=== PATIENT | female | born 1945 | race Caucasian/White ===

== ENCOUNTER 2020-03-19 10:10 | Observation (INO) | payer MEDICARE, SELFPAY ==
[2020-03-19] VITALS (14 sets, daily range): BP systolic 123–188; BP diastolic 59–85; PULSE 51–62; RESP 14–27; TEMP 36.6–36.8; O2SAT 96–100; BMI 24.9
--- NOTE | 2020-03-19 10:35 | DI.RAD.S_ITS ---
PROCEDURE: XR CHEST 1V INDICATIONS: chest pain TECHNIQUE: One view of the chest was acquired. COMPARISON: None. FINDINGS: Surgical changes and devices: None. Lungs and pleura: Minimal streaky opacities can be seen involving both lower lungs. Generalized interstitial prominence is seen. On this semiupright portable chest examination, no large pneumothorax or large pleural effusions are seen. Mediastinum: The cardiac contours are within normal limits. The aorta demonstrates calcification and tortuosity. Bones and chest wall: Age-appropriate bony degenerative changes are seen. No suspicious bony lesions. Overlying soft tissues appear unremarkable. IMPRESSION: Interstitial prominence is seen throughout. The interstitial prominence is nonspecific, yet may be related to pulmonary edema. Minimal streaky opacities are seen at the lung bases, which likely relate to atelectasis. Dictated by: Miller Brandon M.D. on 03/19/2020 at 10:13 Approved by: Miller Brandon M.D. on 03/19/2020 at 10:14
[2020-03-19 11:01] LABS: Albumin 4.1 g/dL (3.5-5.0); Estimated Glomerular Filt Rate > 60.0 mL/min (>60); HEMOLYSIS < 15 (0-50)
[2020-03-19 11:13] LABS: Troponin I < 0.012 ng/mL (0.01-0.034)
--- NOTE | 2020-03-19 11:31 | DI.CT.S_ITS ---
PROCEDURE: CT HEAD/BRAIN WO CON INDICATIONS: dizziness, resolved eye droops and slurred speech TECHNIQUE: Noncontrast 4.5 mm thick angled axial sections acquired from the foramen magnum to the vertex, with coronal and sagittal reformats. For radiation dose reduction, the following was used: automated exposure control, adjustment of mA and/or kV according to patient size. COMPARISON: [facility], CR, XR CHEST 1V, 03/19/2020, 10:38. FINDINGS: Image quality: Excellent. CSF spaces: Basal cisterns are patent. There is an arachnoid cyst involving the anterior aspect of the left middle cranial fossa. The ventricles are symmetric in size and shape. Brain: No intracranial bleeds or masses. This focal dense calcification can be seen involving the anterior left temporal lobe, as on series 2, image 8. There is cerebral volume loss for age, with resultant ventricular and sulcal prominence. There are periventricular and deep white matter chronic small vessel ischemic changes. There is intracranial internal carotid artery atherosclerosis. Skull and face: Calvarium and visualized facial bones appear intact, without suspicious lesions. Sinuses: Focal mucosal thickening is seen involving the right psis maxillary sinus. The paranasal sinuses are otherwise unremarkable. No abnormal fluid is seen within the mastoid air cells. There is a left indra bullosa seen. Moderate rightward nasal septal deviation can be seen. IMPRESSION: No acute intracranial process is seen by noncontrast CT. No acute intracranial hemorrhage is seen. If there is strong clinical suspicion for an acute stroke, please consider an MRI for further evaluation, as it is more sensitive (assuming that there is no contraindication to MRI). There is focal mucosal thickening involving the right maxillary sinus. Focal calcification can be seen involving the left anterior temporal lobe, which is nonspecific, yet may be related to a remote infarct or potentially a remote infection. Incidental note is made of an arachnoid cyst involving the anterior aspect of the left middle cranial fossa. Dictated by: Miller Brandon M.D. on 03/19/2020 at 11:06 Approved by: Miller Brandon M.D. on 03/19/2020 at 11:09
--- NOTE | 2020-03-19 11:42 | ED_ITS ---
HPI - Dizziness <WALT Pagan - Last Filed: 03/19/20 16:09> General Chief Complaint: Dizziness Stated Complaint: Dizziness and headache on and off 2 weeks Time Seen by Provider: 03/19/20 10:43 Source: patient Mode of arrival: Ambulatory Limitations: no limitations History of Present Illness HPI Narrative: This is a 74-year-old female, former smoker who quit smoking 3 weeks ago, who has known contributing medical history presents to ED with her daughter with chief complain of dizziness with spinning sensation which becomes worse when she keeps her eyes closed without any nausea or vomiting started 10:00 a.m. yesterday when she turned her head slightly look over. Daughter st ates she had right side eye droops for several minutes with nystagmus and loss of vision for a few seconds and described as eyes were jumping out. Daughter also noticed mother's speech was not clear but with appropriate content. With this dizziness, she had brief dyspnea and intermittent mild frontal headache. Patient denies weakness to extremities. Patient denies chest pain or vomiting. Patient reports she has been having light dizziness for last 2-3 weeks but became worse yesterday. She reports her symptoms have improved at this time but still feels slightly dizzy. Patient reports she always has trouble with balance. She used to have migraine headache in the past before the hyste rectomy. Patient is visiting her daughter from [place] since March 05. Patient was in contact with family members who has Covid back in November but she had not developed any Covid symptoms at that time. Related Data Home Medications Medication Instructions Recorded Confirmed No Known Home Medications 03/19/20 03/19/20 Allergies Allergy/AdvReac Type Severity Reaction Status Date / Time No Known Drug Allergies Allergy Verified 03/19/20 11:43 Review of Systems <WALT Pagan - Last Filed: 03/19/20 16:09> Review of Systems Narrative: General: Denies fever, chills, fatigue, malaise, sweats. HEENT: See HPI Respiratory: Denies (+) dyspnea with dizziness which resolved, cough, wheezing, hemoptysis, sputum. Cardiovascular: Denies chest pain, palpitations, orthopnea, edema. Gastrointestinal: Denies nausea, vomiting, abdominal pain, diarrhea, constipation, melena. : Denies dysuria, frequency, incontinence, hematuria, urinary retention. Musculoskeletal: Denies weakness, joint pain or bony pain. Skin: Denies rash, skin lesions, or other. Neurologic: HPI Psychiatric: No concerning psychosocial issues. 12-point review of systems is negative except for those stated above. Patient History <WALT Pagan - Last Filed: 03/19/20 16:09> Medical History Cigarette nicotine dependence (Acute) Surgical History (Updated 03/19/20 @ 11:50 by WALT Pagan) History of hysterectomy (Acute) Social History household members: family Smoking Status: Former smoker alcohol intake: current Smoking Status: Former smoker (Quit 02/2020 smoked for 56 yr) alcohol intake frequency: other (Does not use) Substance Use Type: does not use Exam <WALT Pagan - Last Filed: 03/19/20 16:09> Narrative Exam Narrative: GEN: Alert, oriented x 3, well appearing and nourished, and in no acute distress. Head: Normal cephalic, atraumatic. No scalp or temporal tenderness, palpable mass or rash. EYES: Pupils are equal, round, and reactive to light and accommodation. Extraocular muscles are intact bilaterally. There is no subconjunctival hemorrhage, exudate and sclera non-icteric. No nystagmus. ENT: Bilateral auditory canals and tympanic membranes clear. Hearing grossly intact. Nose without bleeding, purulent discharge, septal hematoma or deviation. Turbinate without erythema or swelling. Facial sinuses nontender to palpate. Mucous membrane moist, no mucosal lesion. Throat without erythema, tonsillar hypertrophy or exudate. Uvula in midline, airway patent. Neck: Trachea in midline. No JVD, non-tender without lymphadenopathy. No masses or thyroid megaly. Supple, non-tender and no meningeal signs. CARDIAC: Normal regular rate and rhythm without murmurs, gallops, or rubs. No chest wall tenderness. No peripheral edema, cyanosis or pallor. Capillary refill is less than 2 seconds. No carotid bruits. RESPIRATORY: Lungs are cleat to auscultate bilaterally. No cough, wheezes, rales, or rhonchi. No stridor, respiratory distress, increase work of breathing, or accessary muscle used. ABD: Abdomen soft, nontender and non-distended. No guarding or rebound tend erness to palpate. Bowel sounds are normal in all 4 quadrants. There is no palpable masses or organomegaly. EXT: Full painless ROM of all extremities with no loss of sensation, strength, effusion or edema. SKIN: Warm, dry, normal color for patient. No erythema, lesions or rash. BACK: Nontender without deformity or crepitance. No flank tenderness. NEUROLOGICAL: Alert and oriented to place, time and person. No facial droops, dysphasia. CN II-XII intact. Strength and sensation symmetric and intact throughout. Cerebellar testing normal. PSYCHIATRIC: Good judgement and reason, without hallucinations, abnormal affect or abnormal behaviors during the examination. Patient is not suicidal. Initial Vital Signs Initial Vital Signs: Vital Signs Temperature 98.2 F 03/19/20 10:28 Pulse Rate 59 L 03/19/20 10:28 Respiratory Rate 18 03/19/20 10:28 Blood Pressure 188/84 H 03/19/20 10:28 <Lani Evangelista DO - Last Filed: 03/20/20 07:36> Initial Vital Signs Initial Vital Signs: Vital Signs Temperature 98.2 F 03/19/20 10:28 Pulse Rate 59 L 03/19/20 10:28 Respiratory Rate 18 03/19/20 10:28 Blood Pressure 188/84 H 03/19/20 10:28 Scores <WALT Pagan - Last Filed: 03/19/20 16:09> GCS Sprague coma scale eye opening: Spontaneous Shauna coma scale verbal response: Orientated Shauna coma scale motor response: Obey commands Sprague coma scale total score: 15 NIH Stroke Scale Level of Conciousness: Alert, keenly responsive Ask month/age: Answers both questions correctly. Open/close eyes, close hand: Performs both tasks correctly Best gaze horizontal: Normal Visual leon: No visual loss Facial palsy: Normal symetrical movement Left arm drift: No drift for full 10 sec Right arm drift: No drift for full 10 sec Left leg drift: No drift for full 5 sec Right leg drift: No drift for full 5 sec Limb ataxia: Absent Sensory on face/arms/legs: Normal, no sensory loss Best language: No aphasia, normal Dysarthria: Normal Extinction or inattention: No abnormality Total NIH Stroke scale score: 0 Course <WALT Pagan - Last Filed: 03/19/20 16:09> Orders Ordered: Acetaminophen (Tylenol) 650 mg PO Q6HR PRN PRN Reason: Fever/Mild Pain (1-3) Aspirin (Aspirin Ec) 81 mg PO DAILY [facility] Enoxaparin Sodium (Lovenox) 40 mg SUBCUT DAILY [facility] Magnesium Hydroxide (Milk Of Magnesia) 30 ml PO DAILY PRN PRN Reason: Constipation Sodium Chloride (Normal Saline 0.9% Flush) 10 ml IV PRN PRN PRN Reason: Flush Sodium Chloride (Normal Saline 0.9% Flush) 10 ml IV BID MARLA Discontinued Medications Aspirin (Aspirin) 325 mg PO NOW ONE Stop: 03/19/20 13:21 Last Admin: 03/19/20 13:39 Dose: 325 mg Documented by: RAMON Meclizine HCl (Antivert) 25 mg PO NOW ONE Stop: 03/19/20 11:42 Last Admin: 03/19/20 11:57 Dose: 25 mg Documented by: JOHNY Reevaluation(s) Reevaluation #1: Patient reports dizziness has improved and mostly gone after the meclizine. Time: 13:20 Consultations Consultation #1: Dr. Marshall consulted with the physical findings, HPI and CT result. He recommended CTA of brain and neck and if this comes back unremarka ble then will admit patient for stroke workup with MRI tomorrow under observation. Time: 12:40 Vital Signs Vital signs: Vital Signs - 8 hr 03/19/20 10:28 03/19/20 11:14 03/19/20 11:30 Temperature 98.2 F Pulse Rate 59 L 62 54 L Respiratory Rate 18 14 27 H Blood Pressure 188/84 H 155/66 H 126/85 Pulse Oximetry 98 97 03/19/20 12:00 03/19/20 12:30 03/19/20 13:00 Temperature Pulse Rate 52 L 54 L 51 L Respiratory Rate 18 21 19 Blood Pressure 136/75 131/61 126/59 L Pulse Oximetry 99 97 100 03/19/20 13:30 03/19/20 14:00 03/19/20 14:01 Temperature Pulse Rate 53 L 51 L 52 L Respiratory Rate 21 21 20 Blood Pressure 152/65 H Pulse Oximetry 99 97 97 <Lani Evangelista, - Last Filed: 03/20/20 07:36> Orders Ordered: Acetaminophen (Tylenol) 650 mg PO Q6HR PRN PRN Reason: Fever/Mild Pain (1-3) Aspirin (Aspirin Ec) 81 mg PO DAILY [facility] Enoxaparin Sodium (Lovenox) 40 mg SUBCUT DAILY [facility] Magnesium Hydroxide (Milk Of Magnesia) 30 ml PO DAILY PRN PRN Reason: Constipation Sodium Chloride (Normal Saline 0.9% Flush) 10 ml IV PRN PRN PRN Reason: Flush Sodium Chloride (Normal Saline 0.9% Flush) 10 ml IV BID [facility]LA Discontinued Medications Aspirin (Aspirin) 325 mg PO NOW ONE Stop: 03/19/20 13:21 Last Admin: 03/19/20 13:39 Dose: 325 mg Documented by: RAMON Meclizine HCl (Antivert) 25 mg PO NOW ONE Stop: 03/19/20 11:42 Last Admin: 03/19/20 11:57 Dose: 25 mg Documented by: JOHNY Vital Signs Vital signs: Vital Signs - 8 hr 03/19/20 10:28 03/19/20 11:14 03/19/20 11:30 Temperature 98.2 F Pulse Rate 59 L 62 54 L Respiratory Rate 18 14 27 H Blood Pressure 188/84 H 155/66 H 126/85 Pulse Oximetry 98 97 03/19/20 12:00 03/19/20 12:30 03/19/20 13:00 Temperature Pulse Rate 52 L 54 L 51 L Respiratory Rate 18 21 19 Blood Pressure 136/75 131/61 126/59 L Pulse Oximetry 99 97 100 03/19/20 13:30 03/19/20 14:00 03/19/20 14:01 Temperature Pulse Rate 53 L 51 L 52 L Respiratory Rate 21 21 20 Blood Pressure 152/65 H Pulse Oximetry 99 97 97 MDM - Dizziness <Colten WALT Hager - Last Filed: 03/19/20 16:09> Differential Diagnosis Differential diagnosis: Likely benign paroxysmal positional vertigo, orthostatic hypotension, vertebral basilar insufficiency, cerebrovascular accident and transient cerebral ischemia Medical Records Attestation: I reviewed the patient's medical records. Lab Data Attestation: I reviewed the patient's lab results. Result diagrams: 03/19/20 10:39 03/19/20 10:39 Labs: Lab Results 03/19/20 03/19/20 03/19/20 Range/Units 10:39 10:39 10:39 WBC 5.8 (4.5-11.0) X10^3/uL RBC 4.70 (4.0-5.2) X10^6/uL Hgb 14.0 (12.0-16.0) g/dL Hct 41.7 (36-46) % MCV 88.8 (80-100) fL MCH 29.8 (26-34) PG MCHC 33.5 (30-36) % RDW 13.6 (11.6-14.8) % Plt Count 188 (150-400) X10^3/uL Neut % (Auto) 47.2 L (50-75) % Lymph % (Auto) 40.3 H (25-40) % [place] % (Auto) 7.4 (3-14) % Eos % (Auto) 4.1 H (2-4) % Baso % (Auto) 1.0 (0-2) % Neut # (Auto) 3 L (6432-7865) /uL Lymph # (Auto) 2 L (2580-0671) /uL [place] # (Auto) 0 (0-900) /uL Eos # (Auto) 0 (0-450) /uL Baso # (Auto) 0 (0-100) /uL PT 11.4 (10.1-12.7) SECONDS INR 1.0 (0.9-1.3) APTT 29 (26.4-36.2) SECONDS Sodium 139 (137-145) mmol/L Potassium 4.4 (3.4-5.1) mmol/L Chloride 108 H (98-107) mmol/L Carbon Dioxide 24 (22-32) mmol/L BUN 15 (7-17) mg/dL Creatinine 0.64 (0.52-1.04) mg/dL Estimated GFR > 60.0 (>60) mL/min BUN/Creatinine Ratio 23.4 H (6-22) Glucose 102 (80-110) mg/dL Hemoglobin A1c (4.0-6.0) % Calcium 8.8 (8.4-10.2) mg/dL Total Bilirubin 0.5 (0.2-1.3) mg/dL AST 25 (14-36) IU/L ALT 22 (<35) IU/L Alkaline Phosphatase 68 (38-126) U/L Total Creatine Kinase 116 (30-135) U/L CK-MB (CK-2) (<2.37) ng/mL CK-MB (CK-2) Rel Index (1.5-5.0) % Troponin I < 0.012 (0.01-0.034) ng/mL Total Protein 6.9 (6.3-8.2) g/dL Albumin 4.1 (3.5-5.0) g/dL Globulin 2.8 (1.7-4.1) g/dL Albumin/Globulin Ratio 1.5 (1.0-2.8) Triglycerides (35-150) mg/dL Cholesterol (140-199) mg/dL LDL Cholesterol, Calc (<100) mg/dL HDL Cholesterol (40-60) mg/dL Lipase 308 H (23-300) U/L COVID-19 PCR (Negative) 03/19/20 03/19/20 03/19/20 Range/Units 10:39 10:39 13:10 WBC (4.5-11.0) X10^3/uL RBC (4.0-5.2) X10^6/uL Hgb (12.0-16.0) g/dL Hct (36-46) % MCV (80-100) fL MCH (26-34) PG MCHC (30-36) % RDW (11.6-14.8) % Plt Count (150-400) X10^3/uL Neut % (Auto) (50-75) % Lymph % (Auto) (25-40) % [place] % (Auto) (3-14) % Eos % (Auto) (2-4) % Baso % (Auto) (0-2) % Neut # (Auto) (4396-5916) /uL Lymph # (Auto) (3993-9696) /uL [place] # (Auto) (0-900) /uL Eos # (Auto) (0-450) /uL Baso # (Auto) (0-100) /uL PT (10.1-12.7) SECONDS INR (0.9-1.3) APTT (26.4-36.2) SECONDS Sodium (137-145) mmol/L Potassium (3.4-5.1) mmol/L Chloride (98-107) mmol/L Carbon Dioxide (22-32) mmol/L BUN (7-17) mg/dL Creatinine (0.52-1.04) mg/dL Estimated GFR (>60) mL/min BUN/Creatinine Ratio (6-22) Glucose (80-110) mg/dL Hemoglobin A1c 6.0 (4.0-6.0) % Calcium (8.4-10.2) mg/dL Total Bilirubin (0.2-1.3) mg/dL AST (14-36) IU/L ALT (<35) IU/L Alkaline Phosphatase (38-126) U/L Total Creatine Kinase (30-135) U/L CK-MB (CK-2) (<2.37) ng/mL CK-MB (CK-2) Rel Index (1.5-5.0) % Troponin I (0.01-0.034) ng/mL Total Protein (6.3-8.2) g/dL Albumin (3.5-5.0) g/dL Globulin (1.7-4.1) g/dL Albumin/Globulin Ratio (1.0-2.8) Triglycerides 351 H (35-150) mg/dL Cholesterol 204 H (140-199) mg/dL LDL Cholesterol, Calc 89 (<100) mg/dL HDL Cholesterol 45 (40-60) mg/dL Lipase (23-300) U/L COVID-19 PCR Negative (Negative) Imaging Data Chest x-ray: Radiologist's Impression: [address] [id number] XRay Report Signed Patient: Janell Oconnor LMR#: [id number] : 7Acct:[id number] Age/Sex: 74 / FDate of Service: 03/19/20 Loc: ED Accession Number: [id number] Procedure: XR chest 1V Ordering Provider: Lani Evangelista D.O. PROCEDURE: XR CHEST 1V INDICATIONS: chest pain TECHNIQUE: One view of the chest was acquired. COMPARISON: None. FINDINGS: Surgical changes and devices: None. Lungs and pleura: Minimal streaky opacities can be seen involving both lower l ungs. Generalized interstitial prominence is seen. On this semiupright portable chest examination, no large pneumothorax or large pleural effusions are seen. Mediastinum: The cardiac contours are within normal limits. The aorta demonstrates calcification and tortuosity. Bones and chest wall: Age-appropriate bony degenerative changes are seen. No suspicious bony lesions. Overlying soft tissues appear unremarkable. IMPRESSION: Interstitial prominence is seen throughout. The interstitial prominence is nonspecific, yet may be related to pulmonary edema. Minimal streaky opacities are seen at the lung bases, which likely relate to atelectasis. Dictated by: Miller Brandon M.D. on 03/19/2020 at 10:13 Approved by: Miller Brandon M.D. on 03/19/2020 at 10:14 CT scan - head: Radiologist's Impression: [address] [address] [address] Scan Report Signed Patient: Janell Oconnor LMR#: [id number] : 7Acct:[id number] Age/Sex: 74 / FDate of Service: 03/19/20 Loc: ED Accession Number: [id number] Procedure: CT head/brain wo con Ordering Provider: Colten Hager PROCEDURE: CT HEAD/BRAIN WO CON INDICATIONS: dizziness, resolved eye droops and slurred speech TECHNIQUE: Noncontrast 4.5 mm thick angled axial sections acquired from the foramen magnum to the vertex, with coronal and sagittal reformats. For radiation dose reduction, the following was used: automated exposure control, adjustment of mA and/or kV according to patient size. COMPARISON: [facility], CR, XR CHEST 1V, 03/19/2020, 10:38. FINDINGS: Image quality: Excellent. CSF spaces: Basal cisterns are patent. There is an arachnoid cyst involving the anterior aspect of the left middle cranial fossa. The ventricles are symmetric in size and shape. Brain: No intracranial bleeds or masses. This focal dense calcification can be seen involving the anterior left temporal lobe, as on series 2, image 8. There is cerebral volume loss for age, with resultant ventricular and sulcal prominence. There are periventricular and deep white matter chronic small vessel ischemic changes. There is intracranial internal carotid artery atherosclerosis. Skull and face: Calvarium and visualized facial bones appear intact, without suspicious lesions. Sinuses: Focal mucosal thickening is seen involving the right psis maxillary sinus. The paranasal sinuses are otherwise unremarkable. No abnormal fluid is seen within the mastoid air cells. There is a left indra bullosa seen. Moderate rightward nasal septal deviation can be seen. IMPRESSION: No acute intracranial process is seen by noncontrast CT. No acute intracranial hemorrhage is seen. If there is strong clinical suspicion for an acute stroke, please consider an MRI for further evaluation, as it is more sensitive (assuming that there is no contraindication to MRI). There is focal mucosal thickening involving the right maxillary sinus. Focal calcification can be seen involving the left anterior temporal lobe, which is nonspecific, yet may be related to a remote infarct or potentially a remote infection. Incidental note is made of an arachnoid cyst involving the anterior aspect of the left middle cranial fossa. Dictated by: Miller Brandon M.D. on 03/19/2020 at 11:06 Approved by: Miller Brandon M.D. on 03/19/2020 at 11:09 CTA-Brain and neck: Radiologist's Impression: [place] [address] CT Scan Report Signed Patient: Janell Oconnor LMR#: [id number] : 1945cct:[id number] Age/Sex: 74 / FDate of Service: 03/19/20 Loc: ED Accession Number: [id number] Procedure: CT head/brain wo con Ordering Provider: Colten Hager PROCEDURE: CT HEAD/BRAIN WO CON INDICATIONS: dizziness, resolved eye droops and slurred speech TECHNIQUE: Noncontrast 4.5 mm thick angled axial sections acquired from the foramen magnum to the vertex, with coronal and sagittal reformats. For radiation dose reduction, the following was used: automated exposure control, adjustment of mA and/or kV according to patient size. COMPARISON: [facility], CR, XR CHEST 1V, 03/19/2020, 10:38. FINDINGS: Image quality: Excellent. CSF spaces: Basal cisterns are patent. There is an arachnoid cyst involving the anterior aspect of the left middle cranial fossa. The ventricles are symmetric in size and shape. Brain: No intracranial bleeds or masses. This focal dense calcification can be seen involving the anterior left temporal lobe, as on series 2, image 8. There is cerebral volume loss for age, with resultant ventricular and sulcal prominence. There are periventricular and deep white matter chronic small vessel ischemic changes. There is intracranial internal carotid artery atherosclerosis. Skull and face: Calvarium and visualized facial bones appear intact, without suspicious lesions. Sinuses: Focal mucosal thickening is seen involving the right psis maxillary sinus. The paranasal sinuses are otherwise unremarkable. No abnormal fluid is seen within the mastoid air cells. There is a left indra bullosa seen. Moderate rightward nasal septal deviation can be seen. IMPRESSION: No acute intracranial process is seen by noncontrast CT. No acute intracranial hemorrhage is seen. If there is strong clinical suspicion for an acute stroke, please consider an MRI for further evaluation, as it is more sensitive (assuming that there is no contraindication to MRI). There is focal mucosal thickening involving the right maxillary sinus. Focal calcification can be seen involving the left anterior temporal lobe, which is nonspecific, yet may be related to a remote infarct or potentially a remote infection. Incidental note is made of an arachnoid cyst involving the anterior aspect of the left middle cranial fossa. Dictated by: Miller Brandon M.D. on 03/19/2020 at 11:06 Approved by: Miller Brandon M.D. on 03/19/2020 at 11:09 ECG Data Attestation: I personally reviewed and interpreted this ECG as follows: Prior ECG tracings: not available for review Interpretation: Sinus bradycardia rate at 59. Left dominant axis. MN interval 156, QRS duration 68, QT/QTC 406/[address] changes MDM Narrative Medical decision making narrative: This is a 74 year female who appears to be younger than her stated age presents to ED with slight dizziness for last 2-3 weeks which became worse yesterday at 10:00 a.m. with vision loss for a few seconds, right upper eyelid drooping with slurred speech than noticed by daughter. Patient flew to [place] from [place] on March 05 to visit her daughter. Patient denies history of cardiac, diabetes, or pulmonary history. No history of strokes or TIAs in the past. She is not taking any anticoagulants or platelets. Patient reports mild frontal headache. Patient denies weakness to extremities, dysphagia. Patient reports she always has balance difficulty. NIH score 0. Concerned for TIA or posterior stroke. EkG shows sinus bradycardia rate at [address] test of head without contrast without acute intracranial process. There is a focal mucosal thickening involving in the right maxillary sinus. Also focal calcification involving left anterior temporal lobe may be related to a remote infarct. Incidental note is made of on paranoid cyst involving the anterior aspect of left middle cranial fossa. CBC, CMP, PT/PTT, Cardiac enzyme are unremarkable. Head and neck without significant intracranial artery abnormality is seen. Chest x-ray shows interstitial prominence is seen throughout which is nonspecific with minimal streaky opacity at the lung bases likely due to atelectasis. Dr. Marshall kindly accepted patient's care under observation for further stroke workup. Patient is given 1 full dose of aspirin in ED. improved dizziness after the meclizine. <Lani Evangelista, DO - Last Filed: 03/20/20 07:36> Lab Data Labs: Lab Results 03/19/20 03/19/20 03/19/20 Range/Units 10:39 10:39 10:39 WBC 5.8 (4.5-11.0) X10^3/uL RBC 4.70 (4.0-5.2) X10^6/uL Hgb 14.0 (12.0-16.0) g/dL Hct 41.7 (36-46) % MCV 88.8 (80-100) fL MCH 29.8 (26-34) PG MCHC 33.5 (30-36) % RDW 13.6 (11.6-14.8) % Plt Count 188 (150-400) X10^3/uL Neut % (Auto) 47.2 L (50-75) % Lymph % (Auto) 40.3 H (25-40) % [place] % (Auto) 7.4 (3-14) % Eos % (Auto) 4.1 H (2-4) % Baso % (Auto) 1.0 (0-2) % Neut # (Auto) 3 L (0771-8380) /uL Lymph # (Auto) 2 L (2359-3553) /uL [place] # (Auto) 0 (0-900) /uL Eos # (Auto) 0 (0-450) /uL Baso # (Auto) 0 (0-100) /uL PT 11.4 (10.1-12.7) SECONDS INR 1.0 (0.9-1.3) APTT 29 (26.4-36.2) SECONDS Sodium 139 (137-145) mmol/L Potassium 4.4 (3.4-5.1) mmol/L Chloride 108 H (98-107) mmol/L Carbon Dioxide 24 (22-32) mmol/L BUN 15 (7-17) mg/dL Creatinine 0.64 (0.52-1.04) mg/dL Estimated GFR > 60.0 (>60) mL/min BUN/Creatinine Ratio 23.4 H (6-22) Glucose 102 (80-110) mg/dL Hemoglobin A1c (4.0-6.0) % Calcium 8.8 (8.4-10.2) mg/dL Total Bilirubin 0.5 (0.2-1.3) mg/dL AST 25 (14-36) IU/L ALT 22 (<35) IU/L Alkaline Phosphatase 68 (38-126) U/L Total Creatine Kinase 116 (30-135) U/L CK-MB (CK-2) (<2.37) ng/mL CK-MB (CK-2) Rel Index (1.5-5.0) % Troponin I < 0.012 (0.01-0.034) ng/mL Total Protein 6.9 (6.3-8.2) g/dL Albumin 4.1 (3.5-5.0) g/dL Globulin 2.8 (1.7-4.1) g/dL Albumin/Globulin Ratio 1.5 (1.0-2.8) Triglycerides (35-150) mg/dL Cholesterol (140-199) mg/dL LDL Cholesterol, Calc (<100) mg/dL HDL Cholesterol (40-60) mg/dL Lipase 308 H (23-300) U/L COVID-19 PCR (Negative) 03/19/20 03/19/20 03/19/20 Range/Units 10:39 10:39 13:10 WBC (4.5-11.0) X10^3/uL RBC (4.0-5.2) X10^6/uL Hgb (12.0-16.0) g/dL Hct (36-46) % MCV (80-100) fL MCH (26-34) PG MCHC (30-36) % RDW (11.6-14.8) % Plt Count (150-400) X10^3/uL Neut % (Auto) (50-75) % Lymph % (Auto) (25-40) % [place] % (Auto) (3-14) % Eos % (Auto) (2-4) % Baso % (Auto) (0-2) % Neut # (Auto) (2626-2212) /uL Lymph # (Auto) (6259-2412) /uL [place] # (Auto) (0-900) /uL Eos # (Auto) (0-450) /uL Baso # (Auto) (0-100) /uL PT (10.1-12.7) SECONDS INR (0.9-1.3) APTT (26.4-36.2) SECONDS Sodium (137-145) mmol/L Potassium (3.4-5.1) mmol/L Chloride (98-107) mmol/L Carbon Dioxide (22-32) mmol/L BUN (7-17) mg/dL Creatinine (0.52-1.04) mg/dL Estimated GFR (>60) mL/min BUN/Creatinine Ratio (6-22) Glucose (80-110) mg/dL Hemoglobin A1c 6.0 (4.0-6.0) % Calcium (8.4-10.2) mg/dL Total Bilirubin (0.2-1.3) mg/dL AST (14-36) IU/L ALT (<35) IU/L Alkaline Phosphatase (38-126) U/L Total Creatine Kinase (30-135) U/L CK-MB (CK-2) (<2.37) ng/mL CK-MB (CK-2) Rel Index (1.5-5.0) % Troponin I (0.01-0.034) ng/mL Total Protein (6.3-8.2) g/dL Albumin (3.5-5.0) g/dL Globulin (1.7-4.1) g/dL Albumin/Globulin Ratio (1.0-2.8) Triglycerides 351 H (35-150) mg/dL Cholesterol 204 H (140-199) mg/dL LDL Cholesterol, Calc 89 (<100) mg/dL HDL Cholesterol 45 (40-60) mg/dL Lipase (23-300) U/L COVID-19 PCR Negative (Negative) Discharge Plan Departure Patient Disposition: Admitted as Observation Clinical Impression: Dizziness, TIA (transient ischemic attack) Discharge Date/Time: 03/19/20 16:31 Admit Date/Time: 03/19/20 14:08 Admit Provider: Gio Marshall <Lani Evangelista DO - Last Filed: 03/20/20 07:36> Cosign ED Attending Yanniature Attestation: I was immediately available in the department for consultation. Documentation has been reviewed. I agree with assessment and plan.
[2020-03-19] MEDS: MECLIZINE HCL 12.5 MG TABLET 25 MG PO (11:57)
--- NOTE | 2020-03-19 12:09 | PC.NURSE ---
Pt states dizziness is improved after meclizine.
--- NOTE | 2020-03-19 12:33 | DI.CT.S_ITS ---
PROCEDURE: CT ANGIO HEAD AND NECK INDICATIONS: stroke symptoms TECHNIQUE: Noncontrast images were performed earlier in the day and not repeated. After the administration of intravenous contrast, 1 mm thick sections acquired from the aortic arch through the Nikolai of Mike. Post-contrast 4.5 mm thick sections then re-acquired from the foramen magnum to the vertex. 3-dimensional sheiaxp-xivnqsild-izovsjqtdz (MIP) and/or volume rendering reformats were acquired of the central intracranial vasculature and neck separately. COMPARISON: [facility], CR, XR CHEST 1V, 03/19/2020, 10:38. [facility], CT, CT HEAD/BRAIN WO CON, 03/19/2020, 11:50. FINDINGS: Image quality: Excellent. BRAIN: CSF spaces: Ventricles are normal in size and shape. Basal cisterns are patent. No extra-axial fluid collections. Brain: No midline shift. No intracranial bleeds or masses. No-white matter interface appears intact. Skull and face: Calvarium and facial bones appear intact, without suspicious lesions. Orbits appear normal. Sinuses: Focal mucosal thickening is seen involving the right maxillary sinus. Sinuses and mastoids are otherwise clear. HEAD CT ANGIOGRAPHY: Anterior circulation: Intracranial internal carotid arteries are normal in size and flow. The flow within the paired anterior cerebral arteries is normal and symmetric. The flow within the middle cerebral arteries is normal and symmetric. The anterior communicating artery is seen. No aneurysms are seen. Posterior circulation: Visualized portions of the vertebral arteries demonstrate normal caliber, and join to form a normal appearing basilar artery. Bilateral type origins of the posterior cerebral arteries are seen. Flow within the posterior cerebral arteries is normal and symmetric. No aneurysms are seen. NECK CT ANGIOGRAPHY: Carotid system: The great vessels demonstrate a conventional anatomy as they arise from the aortic arch. The origins of the common carotid arteries appear patent. The common carotid arteries demonstrate normal caliber and courses. The bifurcation regions are both widely patent. The internal carotid arteries demonstrate normal calibers and courses. Posterior circulation: The origins of the vertebral arteries both appear widely patent. The left vertebral artery is dominant to the right. The more superior extracranial portions of both vertebral arteries also demonstrate normal courses and calibers. They join to form a normal appearing basilar artery. Soft tissues: Visualized neck soft tissues demonstrate no suspicious abnormalities. Bones: No suspicious bony lesions. Visualized cervical spine appears normally aligned. There is moderate disc space narrowing seen involving the C5-C6 and C6-C7 levels. IMPRESSION: No significant intracranial arterial abnormality is seen. Within the arteries of the neck, no hemodynamically significant stenosis can be seen. If there is strong clinical suspicion for an acute stroke, please consider an MRI for further evaluation, as it is more sensitive (assuming that there is no contraindication to MRI). Lower cervical spine degenerative changes are seen. Any quantitative measurements of stenosis were performed using NASCET criteria. Dictated by: Miller Brandon M.D. on 03/19/2020 at 12:07 Approved by: Miller Brandon M.D. on 03/19/2020 at 12:11
[2020-03-19 13:20] LABS: Mean Corpuscular Hemoglobin 29.8 PG (26-34); Mean Corpuscular Volume 88.8 fL (80-100)
[2020-03-19 13:21] LABS: Platelet Count 188 X10^3/uL (150-400); Red Cell Distribution Width 13.6 % (11.6-14.8)
[2020-03-19 13:22] LABS: Neutrophils Percent Auto 47.2 % (50-75)
[2020-03-19 13:23] LABS: Add Manual Diff / Slide Review NO; Basophils Absolute Auto 0 /uL (0-100); Eosinophils Absolute Auto 0 /uL (0-450); Eosinophils Percent Auto 4.1 % (2-4); Lymphocytes Absolute Auto 2 /uL (1100-4500); Lymphocytes Percent Auto 40.3 % (25-40); Monocytes Absolute Auto 0 /uL (0-900); Monocytes Percent Auto 7.4 % (3-14); Neutrophils Absolute Auto 3 /uL (1500-7000)
[2020-03-19 13:28] LABS: White Blood Cell Count 5.8 X10^3/uL (4.5-11.0)
[2020-03-19 13:29] LABS: Mean Corpuscular HGB Conc 33.5 % (30-36)
[2020-03-19 13:35] LABS: Hematocrit 41.7 % (36-46)
[2020-03-19 13:37] LABS: Blood Urea Nitrogen 15 mg/dL (7-17); Carbon Dioxide 24 mmol/L (22-32); Chloride 108 mmol/L (98-107); Potassium 4.4 mmol/L (3.4-5.1); Sodium 139 mmol/L (137-145)
[2020-03-19 13:38] LABS: Bilirubin Total 0.5 mg/dL (0.2-1.3); Calcium 8.8 mg/dL (8.4-10.2); Glucose 102 mg/dL (80-110)
[2020-03-19 13:39] LABS: Alanine Aminotransferase 22 IU/L (<35); Albumin Globulin Ratio 1.5 (1.0-2.8); Alkaline Phosphatase 68 U/L (38-126); Aspartate Aminotransferase 25 IU/L (14-36); Globulin 2.8 g/dL (1.7-4.1); Total Protein 6.9 g/dL (6.3-8.2)
[2020-03-19] MEDS: ASPIRIN 325 MG TABLET PO (13:39)
[2020-03-19 13:40] LABS: Lipase 308 U/L (23-300)
[2020-03-19 13:41] LABS: BUN Creatinine Ratio 23.4 (6-22)
[2020-03-19 13:44] LABS: Creatine Kinase 116 U/L (30-135)
[2020-03-19 13:45] LABS: COVID19 -Nasal RAPID Negative (Negative)
[2020-03-19 13:45] LABS: PTT Partial Thromboplastin Tim 29 SECONDS (26.4-36.2); Prothrombin Time 11.4 SECONDS (10.1-12.7)
--- NOTE | 2020-03-19 13:49 | PC.NURSE ---
Lab called; updated labs verified.
--- NOTE | 2020-03-19 14:59 | DI.ECHO.S_ITS ---
[facility]---------+ [facility] +---------+ : : [address] : : : : [id number] : : : : Phone: [phone]+ Echocardiogram Report + + :Name: HOLLAND CISNEROS Study Date: 03/20/2020 Height: 63 in : :[facility] Weight: 142 lb : : Gender: Female BSA: 1.7 m2 : :: 1945 Age: 74 yrs BP: 145/66 mmHg: :Reason For Study: TIA/CVA : :Ordering Physician: AN, : :ALON Performed By: Amelia Meaz : :Referring: ALON NOLAN : + + Interpretation Summary Normal left ventricle size with ejection fraction 60-65%. Mild aortic regurgitation. Procedure: A two-dimensional transthoracic echocardiogram with color flow and Doppler was performed. The study quality was technically adequate. There is no prior echocardiogram noted for this patient. Left Ventricle: The left ventricle is normal in size and wall thickness. The ejection fraction is estimated to be 60-65%. There are no focal wall motion abnormalities. Diastolic parameters suggest probable normal left ventricular diastolic function and normal filling pressures. Right Ventricle: The right ventricle is normal in size and function. Atria: The left atrial size is normal. Right atrial size is normal. There is no Doppler evidence for an interatrial shunt. Mitral Valve: The mitral valve is normal in structure and function. There is no mitral regurgitation noted. Aortic Valve: The aortic valve is trileaflet. The aortic valve opens well. The aortic valve is grossly normal. There is no aortic valve stenosis. There is mild aortic regurgitation. Tricuspid Valve: The tricuspid valve is normal in structure and function. There is trace tricuspid regurgitation. Pulmonary artery pressures cannot be estimated because of the lack of a measurable TR jet velocity but the IVC suggests a CVP of around 3 mmHg. Pulmonic Valve: The pulmonic valve is not well visualized. There is no pulmonic valvular regurgitation. Great Vessels: The aortic root is normal size. The dimensions of the ascending aorta are normal. The IVC is of normal diameter and collapses greater than 50% with a sniff. This suggests a low right atrial pressure of 3 mm Hg. Pericardium/ Pleura There is no pericardial effusion. There is no pleural effusion. MMode/2D Measurements & Calculations LVIDd: 3.9 cm LVOT diam: 1.9 cm LVIDs: 2.5 cm Ao root diam: 3.0 cm FS: 35.7 % asc Aorta Diam: 2.8 cm EPSS: 0.30 cm Ao Arch Diam (Prox Trans): 2.3 cm IVSd: 0.77 cm LVPWd: 0.80 cm LV dietz. diameter/BSA (cm/m^2): 2.4 LV sys. diameter/BSA (cm/m^2): 1.5 LA A2 area: 12.5 cm2 RA long axis: 3.7 cm LA A4 area: 10.0 cm2 RA area: 9.1 cm2 LA length (vol): 3.7 cm RA vol: 18.9 ml LA vol: 28.9 ml RA : 11.3 ml/m2 LA vol index: 17.3 ml/m2 IVC diam: 1.6 cm RVD1 (basal): 3.2 cm TAPSE: 1.7 cm Doppler Measurements & Calculations Ao V2 max: 134.1 cm/sec LVOT Max Redd: 96.6 cm/sec Ao V2 mean: 86.8 cm/sec LV V1 max P.7 mmHg Ao max P.2 mmHg LV V1 VTI: 19.8 cm Ao mean P.5 mmHg POOL(I,D): 1.9 cm2 Ao V2 VTI: 29.5 cm POOL(V,D): 2.0 cm2 sev ratio: 0.67 POOL indexed to BSA (cm^2/m^2): 1.1 AI P1/2t: 798.4 msec AI dec slope: 159.5 cm/sec2 MV E max redd: 75.5 cm/sec PA V2 max: 80.0 cm/sec MV A max redd: 73.7 cm/sec PA V2 mean: 55.0 cm/sec MV E/A: 1.0 PA mean P.4 mmHg Med Peak E' Redd: 8.1 cm/sec PA pr(Accel): 12.2 mmHg E/E' med: 9.3 Lat Peak E' Redd: 8.7 cm/sec E/E' lat: 8.7 E/e' average: 9.0 MV dec time: 0.20 sec SVJorge [facility]): 55.7 ml Electronically signed by: Jamie Shepherd on Reading Physician:03/20/2020 04:14 PM
[2020-03-19 15:18] LABS: Cholesterol 204 mg/dL (140-199); HDL Cholesterol 45 mg/dL (40-60); LDL Cholesterol Calculated 89 mg/dL (<100); Triglycerides 351 mg/dL (35-150)
--- NOTE | 2020-03-19 16:08 | PT-IP ANOTE ---
Received PT orders and reviewed chart. Spoke with AIDA Patrick who states pt is coming from ED and has not yet been admitted to the acute care floor. Will see pt 03/20/20.
--- NOTE | 2020-03-19 16:08 | PC.NURSE ---
Attempted to call report to acute unit/Darnell PARRA. RN not available.
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
--- NOTE | 2020-03-19 16:25 | PC.NURSE ---
Report to Aliyah mcclelland RN
--- NOTE | 2020-03-19 16:34 | DI.MRI.S_ITS ---
PROCEDURE: MR HEAD/BRAIN WO CON INDICATIONS: TIA/CVA TECHNIQUE: Non-contrast axial T1 spin echo, axial T2 fast spin echo, sagittal and axial FLAIR, coronal T2 fast spin echo, axial gradient echo, axial diffusion and ADC through the brain. COMPARISON: [facility], CT, CT ANGIO HEAD AND NECK, 03/19/2020, 12:37. FINDINGS: Image quality: Excellent. CSF spaces: Ventricles appear symmetric in size and shape. Basal cisterns are patent. No extra-axial fluid collections. Brain: No intracranial bleeds or mass effects. There is cerebral volume loss for age. There are periventricular and deep white matter chronic small vessel ischemic changes. Brainstem appears normal. Diffusion-weighted images show no acute ischemic insults. No chronic ischemic insults. Normal intravascular flow voids are present. Skull and face: Calvarial bone marrow is normal in signal. Orbits are normal. Sinuses: Air-fluid level versus retention cyst within the right maxillary sinus. Bilateral mild maxillary sinus mucosal thickening. Sinuses and mastoids are otherwise clear. IMPRESSION: 1. Volume loss and small vessel ischemic disease. 2. No acute intracranial process. No recent infarct. 3. Maxillary sinus disease. Dictated by: Dottie Obregon M.D. on 03/20/2020 at 11:17 Approved by: Dottie Obregon M.D. on 03/20/2020 at 11:23
--- NOTE | 2020-03-20 00:22 | PC.NURSE ---
Addendum entered by Sandra Shin R.N. 03/20/20 00:35: NIH on assessment was 0 Original Note: Seen and assessed at 2331. Is alert and oriented but states she is forgetful. Breath sounds diminished at bases but CTA with RA sat of 97%. HRR; last telemetry reading documented at 2044 was SB and current HR was 56 bpm. Denies nausea. BT present and is passing flatus. Denies dysuria, frequency or urgency with urination. Able to move self in bed and gets out of bed with SBA due to past episodes of dizziness; denies any dizziness at this time. Denies pain. Fall risk score is moderate and bed alarm is activated.
[2020-03-20 05:00] VITALS: BP 136/70; PULSE 47; RESP 16; TEMP 37.3; O2SAT 97
[2020-03-20 07:45] VITALS: BP 127/75; PULSE 54; RESP 16; TEMP 36.1; O2SAT 97
[2020-03-20] MEDS: SODIUM CHLORIDE 0.9% FLUSH 10 ML IV (08:55)
[2020-03-20] MEDS: ENOXAPARIN 40 MG/0.4 ML SYRINGE SUBCUT (08:55)
[2020-03-20] MEDS: ASPIRIN EC 81 MG TABLET PO (08:55)
[2020-03-20 09:01] VITALS: O2SAT 98
--- NOTE | 2020-03-20 10:36 | PC.NURSE ---
Day shift: Pt off unit for MRI. ETA back to AC unit approx 1115.
--- NOTE | 2020-03-20 10:48 | CM.DANOTE ---
Patient is a 74 year old female who was admitted on 03/19/20 for Dizziness. Pt has [facility] for insurance and her PCP is not listed as [place]. EMR was reviewed. Per MD, pt CT negative and admitted to r/o TIA/CVA and to have Echo and MRI today at 1030. Per RN, pt independent in room but SBA due to dizziness and fall risk. Per PT, recommending safe return home when medically stable pending MRI results. SW met bedside with pt during MD rounding and pt confirms that she resides permanently in [place] but has been here staying with adult Dtr/DPOA Bessy for a couple months to help with Dtr's divorce and watch the grandchildren. Pt is scheduled to return to [place] at the end of March. Pt is independent with ADL's at baseline, drives, does not use DME. Plan: SW to follow for MRI results to determine TIA vs CVA and identify discharge planning needs. MERARY Ndiaye Discharge Planning/Care Management CM Discharge Assessment Start: 03/20/20 10:47 Freq: Status: Active Protocol: Document 03/20/20 10:47 BF (Rec: 03/20/20 10:48 BF [id number]) Discharge Planning Assessment Assigned Director Trust MERARY Mast/Assigned Designee Name Jony Bessy Contact Information [phone] Advance Directives? No Advance Directives on File No History Provided By Patient,Medical Record Has Patient been admitted in last 30 No days? Prior Living Arrangements House Household Members none Type of transporation used prior to Drives own vehicle admit Independent with ADL's Yes Is patient alert and oriented? Yes Caregiver for Another No Patient/Family Preference OP PT Therapy Barriers to Discharge No Discharge Plan Home Transportation Arrangement Dtr able to provide transport at d/c Additional Comment Waiting for MRI to determine any d/c needs Whiteboard Updated in Patient Room with Yes name and ext. # of Director Trust Review Status In Process Please Provide Date Initial DC 03/20/20 Assessment Was Performed Next Review Type Continued Stay Review
--- NOTE | 2020-03-20 11:01 | PC.NURSE ---
Day shift: Pt back on AC unit at approx 1101. Tolerated MRI well. Pt to be placed back on tele.
[2020-03-20 11:11] VITALS: BP 129/63; PULSE 57; RESP 16; TEMP 36.5; O2SAT 97
--- NOTE | 2020-03-20 11:23 | PT.IIE ---
Surgical History (Last Updated 03/19/20 @ 11:50 by WLAT Pagan) History of hysterectomy (Acute) Medical History Cigarette nicotine dependence (Acute) Physical Therapy Inpatient Evaluation/Re-Eval M1 PT/OT-IP Prior Functional Status Start: 03/19/20 15:50 Freq: NEEDED Status: Active Protocol: Document 03/20/20 11:00 AW (Rec: 03/20/20 11:22 AW [id number]) Medical Review Prior Functional Status Medical History Reviewed Yes Communication WNL. No known deficits Mobility and Gait Independent without assistive device and without meaningful limit. Activities of Daily Living and IADL's Independent Social History Household Members children Living Arrangements House Number of Floors (Floors) One Floor Number of Stairs To Enter/Railing? Level entry Home Environment High Toilet,Walk in Shower, Built-In Shower Seat Home Equipment Grab Bars Near Toilet,Grab Bars In Shower Employment Status Retired Additional Social History Comment Pt lives in [place], [place]. Her daughter and son-in-law live in her house. Daughter is working at home at this time. She is in the area visiting her daughter who resides in [place]. M2 PT-IP Current Condition Start: 03/19/20 15:50 Freq: NEEDED Status: Active Protocol: Document 03/20/20 11:00 AW (Rec: 03/20/20 11:22 AW [id number]) Physical Therapy Current Condition Current Condition Evaluation Date 03/20/20 Treatment Diagnosis possible TIA; balance impairment; difficulty in walking Onset Date 03/18/20 M3 PT-IP Subjective Start: 03/19/20 15:50 Freq: NEEDED Status: Active Protocol: Document 03/20/20 11:00 AW (Rec: 03/20/20 11:22 AW [id number]) Subjective Physical Therapy Visit Type Type Initial Evaluation Visit Start Time 09:23 Visit Stop Time 09:52 Total Visit Minutes 29 Physical Therapy Visit Comments Patient Comments Pt is willing to participate with PT Therapy Pain Assessment Pain When Pain Assessed During Mobility Pain Present Pain Present Denied Pain M4 PT-IP Mobility and Gait Start: 03/19/20 15:50 Freq: NEEDED Status: Active Protocol: Document 03/20/20 11:00 AW (Rec: 03/20/20 11:22 AW [id number]) PT-Bed Mobility Assessment Supine to Sit Supine to Sit Independent Scooting Scooting to Edge of Bed Independent PT-Transfer Assessment Sit to and From Stand Sit to and from Stand Independent Equipment Transfer Assistive Device None,Gait Belt Transfers Transfer Destination Chair Transfer Technique pt ambulated IND Transfer Ability Level of Assist Independent Comments Mobility Comments Pt was reclined in the bed as PT arrived. She completed all bed mobility and transfers independently. Gait Assessment Gait Gait Assistance Required: Standby Assistance Distance (Feet) 250 Assistive Devices Assistive Device None,Gait Belt Orthotic/Prosthetic Devices or Brace: No Gait Deviations General Gait Pattern Decreased Stride Length, Decreased Feet Clearance, Lateral Trunk Lean Factors Limiting Gait Function Factors Limiting Gait Function Decreased Sensation,Poor Balance,Poor Safety Awareness Comments Gait Comments Pt states she has chronic balance issues and has difficulty walking a straight line. On evaluation, she presents with moderate path deviations, scoring 7/12 on 4- item DGI with points deducted for path deviation in three categories. Right arm swing is reduced compared with left. Pt states this performance is consistent with her baseline. She denies history of falls. Stair Climbing Assessment Comments Stair Climbing Comments Not assessed. PT-Balance Assessment Sitting Balance and Reactions Static Sitting Balance Ability Normal Dynamic Sitting Balance Ability Normal Standing Balance and Reactions Static Standing Balance Ability Fair Dynamic Standing Balance Ability Fair Device Used none M5 PT-IP Objective Assessments Start: 03/19/20 15:50 Freq: NEEDED Status: Active Protocol: Document 03/20/20 11:00 AW (Rec: 03/20/20 11:22 AW [id number]) Orientation Orientation/Cognition Level of Alertness Alert Orientation Name,Day of Week,Place, Situation Language Function Ability No Deficits Noted Safety Awareness Understands Safety Issues Memory Description Short Term Impaired Gross Range of Motion Upper Extremity ROM Assessment Within Functional Limits Lower Extremity ROM Assessment Within Functional Limits Strength Upper Extremity Strength Assessment Within Functional Limits Lower Extremity Strength Assessment Within Functional Limits Comments Strength Comments No unilateral deficit on exam Coordination Assessment Gross Coordination Gross Coordination WNL Assessment Finger to Nose Test Normal Performance Pronation/Supination Test Normal Performance Sensation Assessment Sensation Gross Sensation Right LE Impaired Light Touch Impaired Sensation Description Numbness,Tingling Comments Sensation Comments Pt reports numbness and tingling in right great toe Muscle Tone Muscle Tone WNL Yes Comments Muscle Tone Comments Negative clonus at bilateral ankles Other Assessments Other Other Assessments Occulomotor exam grossly normal. VOR appears intact with good gaze stability on head thrust testing. No observed resting or gaze- evoked nystagmus. Pt does have (+) R eye droop but all other facial expression was symmetrical, visual leon are intact, speech content and intelligibility were normal. M6 PT-IP Treatment Start: 03/19/20 15:50 Freq: NEEDED Status: Active Protocol: Document 03/20/20 11:00 AW (Rec: 03/20/20 11:22 AW [id number]) Physical Therapy Treatment Education Education Provided Safety Other Treatments Other Treatment Performed Provided education on role of PT, plan of care, and signs of stroke with pt able to teach back regarding CVA red flags. M7 PT-IP Assessment and Plan Start: 03/19/20 15:50 Freq: NEEDED Status: Active Protocol: Document 03/20/20 11:00 AW (Rec: 03/20/20 11:22 AW [id number]) PT Summary Assessment and Plan Potential Rehabilitation Potential Good Status of Condition at Evaluation Stable Summary Impairments Balance,Sensation,Gait Assessment Summary Janell is a 74 yo woman seen for PT evaluation after an episode of dizziness, vision disturbance, right eye droop, and slurred speech. MRI stroke protocol is pending. She is independent in all regards at baseline. She admits to history of impaired balance but denies falls. On evaluation, pt required SBA for ambulation without assistive device due to path deviations resulting in losses of balance from which she was able to recover without physical assist. 4-item DGI score was 7/12 indicating increased risk of falls. Pt will benefit from continued acute PT to address gait and balance impairments. She would also benefit from referral to outpatient PT to address same . Goals Gait Goal Independent Gait Distance 500 Other Goals - pt will score 25/30 or greater on Functional Gait Assessment to demonstrate reduced falls risk Frequency of Treatment Frequency Of Treatment Once a Day Treatment Plan Physical Therapy Treatment Plan Gait Training,Therapeutic Exercise,Balance Retraining, Discharge Planning, Neuromuscular Re-ed, Coordination Retraining Other Recommendations and Next Treatment balance interventions, gait Focus with head turns, full FGA for baseline measure Recommendations To Nursing Amount of Assist Needed Standby Assistance Discharge Recommendations PT Discharge Recommendations Home,Outpatient PT Transportation Needs at Discharge Private Vehicle
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
--- NOTE | 2020-03-20 14:01 | PC.NURSE ---
Day shift: Pt has MD scripts. Pt has all her personal belongings. Paperwork signed and all questions answered. Pt taken to car in by JERAD. Pt's daughter is picking Pt up.
--- NOTE | 2020-03-20 14:11 | PC.NURSE ---
Day shift: Pt off unit at approx 1410.
== END 2020-03-20 14:11 | disposition home or self-care (01) ==
LOC: ED 13:54 → AC 14:09
PROVIDERS: Emergency Medicine; Admitting Provider Internal Medicine; Emergency Provider Nurse Practitioner Family; Referring Provider Nurse Practitioner Family; Visit Provider Internal Medicine
DX: R42 Dizziness and giddiness (principal); Z87.891 Personal history of nicotine dependence; R51 Headache; R47.81 Slurred speech; Z03.818 Encounter for observation for suspected exposure to other biological agents ruled out
CPT/HCPCS: 36415; 70450; 70496; 70498; 70551; 71045; 80053; 80061; 82550; 82553; 83036; 83690; 84484; 85025; 85610; 85730; 87635; 93005; 93306; 96372; 97161; 99284; G0378; J1650; Q9967